=== PATIENT | female | born 1975 | race Caucasian/White ===

== ENCOUNTER 2019-05-17 19:26 | Inpatient (IN) | payer OTHER, MEDICARE ==
[~2019-05-17] VITALS: Ht 167.6 cm; Wt 83.7 kg
[2019-05-17 19:30] VITALS: BP 109/71
[2019-05-17] MEDS ORDERED: METHOCARBAMOL500 M2 PO (19:46)
[2019-05-17] MEDS ORDERED: BUSPAR30 MG PO (19:46)
[2019-05-17] MEDS ORDERED: QUETIAPINE FUM100 MG PO (19:46)
[2019-05-17] MEDS ORDERED: VISTARIL 25 MG25 M1 PO (19:47)
[2019-05-17] MEDS ORDERED: XANAX2 MG PO (19:47)
[2019-05-17] MEDS ORDERED: GEODON 80 MG CA80 MG PO (19:47)
[2019-05-17 20:06] LABS: URINE BILIRUBIN NEGATIVE (Negative); URINE BLOOD NEGATIVE (Negative); URINE CLARITY CLEAR; URINE COLOR YELLOW; URINE GLUCOSE-RANDOM NEGATIVE (Negative); URINE KETONES NEGATIVE (Negative); URINE LEUKOCYTES-REFLEX NEGATIVE (Negative); URINE NITRITE-REFLEX NEGATIVE (Negative); URINE PROTEIN NEGATIVE (Negative); URINE UROBILINOGEN 0.2 E.U./dl (0.2-1.0)
[2019-05-17 20:06] LABS: ABSOLUTE BASOPHILS 0.1 thou/uL (0.0-0.2); ABSOLUTE LYMPHOCYTES 3.6 thou/uL (0.8-5.3); ABSOLUTE MONOCYTES 0.9 thou/uL (0.0-1.2); ABSOLUTE NEUTROPHILS 7.2 thou/uL (1.6-8.1); BASOPHILS 0.6 %; EOSINOPHILS 0.3 %; HEMATOCRIT 39.6 % (37.0-47.0); HEMOGLOBIN 13.3 gm/dL (12.0-15.0); LYMPHOCYTES 30.1 %; MCH 30.1 pg (26.0-34.0); MCHC 33.5 g/dL (28.0-37.0); MCV 89.9 fL (80.0-100.0); MONOCYTES 7.6 %; MPV 7.8 fl. (7.2-11.1); NUCLEATED RBCS 0 /100WBC; PLATELET COUNT* 322 thou/uL (150-400); POLYS 61.4 %; RDW-CV 14.7 % (10.5-14.5); WBC 11.8 thou/uL (4.0-11.0)
[2019-05-17 20:15] LABS: AMP/METHAMP Negative (Negative); BARBITURATES Negative (Negative); BENZODIAZEPINES POSITIVE (Negative); COCAINE Negative (Negative); METHADONE Negative (Negative); OPIATES Negative (Negative); PCP Negative (Negative); THC Negative (Negative)
[2019-05-17 20:17] LABS: CREATININE 0.7 mg/dL (0.6-1.3); POTASSIUM 3.3 mmol/L (3.5-5.1)
[2019-05-17 20:21] LABS: ALBUMIN 3.1 g/dL (3.4-5.0); MAGNESIUM 1.5 mg/dL (1.8-2.4); TOTAL BILIRUBIN 0.5 mg/dL (<0.1-1.0); TOTAL PROTEIN 6.1 g/dL (6.4-8.2)
[2019-05-17 22:02] LABS: BE -1.1 mmol/L (-2 to +3); pH 7.422 (7.340-7.450)
[2019-05-17 22:05] LABS: PO2 335.5 mmHg (75.0-100.0)
[2019-05-17 22:10] VITALS: BP 94/59
[2019-05-17 22:25] VITALS: BP 140/86
[2019-05-17 23:01] VITALS: BP 107/64
[2019-05-17 23:45] VITALS: BP 93/60
[2019-05-18] VITALS (64 sets, daily range): BP systolic 83–130; BP diastolic 39–67
--- NOTE | 2019-05-18 11:21 | EKG ---
[place] [address] ELECTROCARDIOGRAM REPORT Name: FILEMON RUSSELL Room: [address] ADM IN .R.#: [id number] Admission: 05/17/19 Attend Phys: Jerrica Morin Discharge: Date of : 77 Report #: [id number] THIS REPORT FOR: //name// [facility] ED Test Date: 2019-05-17 Test Time: 21:47:24 Pat Name: FILEMON RUSSELL Department: Room: [address] Gender: F Medical Staff Manager: [place] : 1975 Requested By: Germaine Ba Order Number: [id number] Adriana MD: Poncho Forman Measurements Intervals [place] Rate: 50 P: 46 IN: 136 QRS: 69 QRSD: 102 T: 83 QT: 535 QTc: 488 Interpretive Statements Sinus bradycardia Borderline prolonged QT interval Electronically Signed On 05-18-2019 11:21:31 CDT by Poncho Forman [email or web address] <ELECTRONICALLY SIGNED> By: Poncho Forman MD, [facility] 05/18/19 1121 2147 2147 Poncho Forman MD, FACC /EPI
--- NOTE | 2019-05-18 11:21 | EKG ---
[place] [address] ELECTROCARDIOGRAM REPORT Name: FILEMON RUSSELL Room: [address] ADM IN M.R.#: [id number] Admission: 05/17/19 Attend Phys: Jerrica Morin Discharge: Date of : 77 Report #: [id number] THIS REPORT FOR: //name// [facility] ED Test Date: 2019-05-17 Test Time: 19:37:17 Pat Name: FILEMON RUSSELL Department: Room: [address] Gender: F Pipelayer: [place] : 1975 Requested By: Germaine Ba Order Number: [id number] MD: Poncho Forman Measurements Intervals [place] Rate: 88 P: 67 UT: 142 QRS: 67 QRSD: 91 T: QT: 417 QTc: 505 Interpretive Statements Sinus rhythm Borderline T abnormalities, diffuse leads Borderline prolonged QT interval Baseline wander in lead(s) V5 No previous ECG available for comparison Electronically Signed On 05-18-2019 11:20:46 CDT by Poncho Forman [email or web address] <ELECTRONICALLY SIGNED> By: Poncho Forman MD, [facility] 05/18/19 1120 36 36 Poncho Forman MD, [facility] /EPI
[2019-05-18 19:58] LABS: CALCIUM 8.3 mg/dL (8.5-10.1); CREATININE 0.7 mg/dL (0.6-1.3); MAGNESIUM 2.3 mg/dL (1.8-2.4)
[2019-05-18 19:59] LABS: POTASSIUM 4.5 mmol/L (3.5-5.1)
[2019-05-19] VITALS (58 sets, daily range): BP systolic 87–131; BP diastolic 43–83
--- NOTE | 2019-05-19 08:24 | CON ---
[facility] [address] [place] [address] CONSULTATION Name: FILEMON RUSSELL Room: [address] IN .R.#: [id number] Admission: 05/17/19 Attend Phys: Jerrica Morin Discharge: Date of : 77 Report #: [id number] THIS REPORT FOR: //name// CC: Nataly Matson HISTORY OF PRESENT ILLNESS: This is a 43-year-old female patient who was intubated, sedated during my visit, did not participate in the history, but I reviewed the medical records and discussed with the at the bedside. The told me around 5-6 p.m. yesterday when he finished mowing his lawn with his son, he went back home and found her unresponsive, sitting at the side of the bed. She was breathing, but unresponsive. There were no signs of seizure according to him, then he called EMS. When she was brought in, she was unresponsive, unable to protect her airways and she was intubated for airway protection. This morning when I saw her, she was on 1 mg of Versed. She looked to be sedated, although I was able to stimulate her with very aggressive stimuli, she opened her eyes. She tried to move some words, but she drifted quickly back to sleep. She moved upper extremities. The tells me she had extreme anxiety. She is on multiple medications for that in the past. She attempted 1 time an overdose with medication, but never been intubated. Recently, she had been trying for a new job. There is some increased level of anxiety associated with it, but he does not think she took extra medication on purpose, but he said maybe by mistake, although not sure. She is a smoker. No inhalers at home. No known lung disease. HOME MEDICATIONS: She is on Seroquel. She is on methocarbamol, she is on BuSpar, Geodon, Xanax, Vistaril. FAMILY HISTORY: Reviewed with the patient's , noncontributory. ALLERGIES: Per the , he is not aware of any allergies. PAST SURGICAL HISTORY: No major chest surgery. PAST MEDICAL HISTORY: Includes depression, anxiety, previous suicidal attempt according to the . REVIEW OF SYSTEMS: Unobtainable due to the patient's condition. PHYSICAL EXAMINATION: GENERAL: Lying in bed, sedated, although needs extreme stimulation to open her eyes, but she drifted back to sleep. ET tube in place. HEENT: Head normocephalic, atraumatic. Pupils dilated, but reactive to light. External ear, looks normal. Nasal cavity[place] [address] CONSULTATION Name: FILEMON RUSSELL Room: [address] IN ..#: [id number] Admission: 05/17/19 Attend Phys: Jerrica Morin Discharge: Date of : 77 Report #: [id number] NECK: Nontender. Trachea is central. No palpable lymph node. CHEST: Clear to auscultation. No wheezes, no crackles. HEART: S1, S2, no murmur. ABDOMEN: Benign, soft, lax, nontender. EXTREMITIES: Lower extremity, no edema. NEUROLOGIC: When stimulated, she moved her upper extremities, but again drifted back to sleep. LABORATORY DATA: White blood count 11.8, hemoglobin 13.3 and platelets of 322. Her ABG 7.4/36/335. Her creatinine is 0.7, potassium 3.3, sodium 132, and calcium 8. Her chest x-ray showed haziness on the left side. IMPRESSION: 1. Acute respiratory failure. 2. Mental status change. 3. Possible drug overdose. If any, not sure if incidental or intentional. 4. Extreme anxiety per the . 5. Left lower lobe infiltrate, possible aspiration. Although she looked to be heavily sedated and sleepy, she was only on 1 mg of Versed. She arouses with difficulty, but goes back to sleep. We switched her to pressure support ventilation weaning trials. Her volumes were excellent. RSBI in the 20s and tidal volume up to 700. Before I left the room, we switched her back to assist control ventilation. We will keep her off sedation when she is awake. We will give her extubation trials. She might need p.r.n. anxiety medications. I will start her on antibiotics to cover possible pneumonia. Followup chest x-ray in the morning. Once she is awake and extubated, we can clarify further if she actually took extra medication. Of note, her urine drug screen was positive for benzo, which she has a prescription for at home and she has no alcohol in her blood. Critical care time 35 minutes. <ELECTRONICALLY SIGNED> By: Jelani Valentin MD 05/19/19 0824 [id number] Foster MD /nt
[2019-05-19 11:11] LABS: BE -1.8 mmol/L (-2 to +3); PCO2 42.2 mmHg (35.0-45.0); pH 7.364 (7.340-7.450)
[2019-05-19 11:12] LABS: PO2 127.3 mmHg (75.0-100.0)
[2019-05-20 04:30] LABS: NUCLEATED RBCS 1 /100WBC
[2019-05-20 05:04] VITALS: BP 95/56
[2019-05-20 06:42] LABS: WBC 10.7 thou/uL (4.0-11.0)
[2019-05-20 06:43] LABS: ABSOLUTE EOSINOPHILS 0.1 thou/uL (0.0-0.7)
[2019-05-20 06:44] LABS: ABSOLUTE MONOCYTES 1.1 thou/uL (0.0-1.2); RBC 4.19 mil/uL (4.20-5.00)
[2019-05-20 06:45] LABS: HEMOGLOBIN 12.7 gm/dL (12.0-15.0)
[2019-05-20 06:46] LABS: HEMATOCRIT 38.2 % (37.0-47.0)
[2019-05-20 06:47] LABS: MCH 30.2 pg (26.0-34.0); MCV 91.2 fL (80.0-100.0)
[2019-05-20 06:48] LABS: MCHC 33.1 g/dL (28.0-37.0); PLATELET COUNT* 304 thou/uL (150-400); RDW-CV 14.7 % (10.5-14.5)
[2019-05-20 06:49] LABS: ABSOLUTE NEUTROPHILS 6.6 thou/uL (1.6-8.1); POLYS 61.4 %
[2019-05-20 06:50] LABS: ABSOLUTE LYMPHOCYTES 2.9 thou/uL (0.8-5.3); LYMPHOCYTES 26.9 %; MONOCYTES 9.9 %
[2019-05-20 06:51] LABS: EOSINOPHILS 1.1 %
[2019-05-20 06:52] LABS: ABSOLUTE BASOPHILS 0.1 thou/uL (0.0-0.2); BASOPHILS 0.7 %
[2019-05-20 07:04] LABS: POTASSIUM 3.9 mmol/L (3.5-5.1)
[2019-05-20 07:06] LABS: CREATININE 0.7 mg/dL (0.6-1.3)
[2019-05-20 07:10] LABS: CALCIUM 8.3 mg/dL (8.5-10.1); TOTAL BILIRUBIN 0.5 mg/dL (<0.1-1.0)
[2019-05-20 07:12] LABS: ALBUMIN 2.8 g/dL (3.4-5.0); TOTAL PROTEIN 5.9 g/dL (6.4-8.2)
[2019-05-20 07:41] VITALS: BP 124/74
[2019-05-20 10:05] VITALS: BP 95/56
[2019-05-20] MEDS ORDERED: CEPACOL SORE T1 EAC8 PO (10:35)
[2019-05-20] MEDS ORDERED: AUGMENTIN 875-1 EACH PO (10:37)
[2019-05-20] MEDS ORDERED: IPRAT-ALBUT 0.5-3 ML INH (10:40)
[2019-05-20 13:19] VITALS: BP 109/62
[2019-05-20 16:30] VITALS: BP 119/75
[2019-05-21 07:17] VITALS: BP 108/50
[2019-05-21 10:52] VITALS: BP 133/79
== END 2019-05-21 11:05 | disposition short-term general hospital (02) | DRG 917 ==
LOC: M.ERS 19:26 → M.TBA-ER 20:28 → M.ICU 20:28
PROVIDERS: Family Medicine; Internal Medicine Pulmonary Disease; Personal Emergency Response Attendant; ADMIT Internal Medicine
PROC: 5A1945Z Respiratory Ventilation, 24-96 Consecutive Hours (ICD-10-PCS; principal; 2019-05-17)
PROC: 02HV33Z Insertion of Infusion Device into Superior Vena Cava, Percutaneous Approach (ICD-10-PCS; principal; 2019-05-17)
PROC: 0BH17EZ Insertion of Endotracheal Airway into Trachea, Via Natural or Artificial Opening (ICD-10-PCS; principal; 2019-05-17)
DX: T42.4X1A Poisoning by benzodiazepines, accidental (unintentional), initial encounter (principal); J96.00 Acute respiratory failure, unspecified whether with hypoxia or hypercapnia; J69.0 Pneumonitis due to inhalation of food and vomit; E44.1 Mild protein-calorie malnutrition; E83.51 Hypocalcemia; J02.9 Acute pharyngitis, unspecified; E83.42 Hypomagnesemia; F17.210 Nicotine dependence, cigarettes, uncomplicated; F32.9 Major depressive disorder, single episode, unspecified; F41.9 Anxiety disorder, unspecified; Z79.899 Other long term (current) drug therapy; Z68.29 Body mass index [BMI] 29.0-29.9, adult; Y92.89 Other specified places as the place of occurrence of the external cause